=== PATIENT | female | born 1990 | race Caucasian/White ===

== ENCOUNTER 2023-08-01 10:49 | Emergency (ER) | payer BC, MEDICAID, SELFPAY ==
[2023-08-01] VITALS (7 sets, daily range): BP systolic 97–120; BP diastolic 58–83; PULSE 73–89; RESP 16–19; TEMP 36.7; O2SAT 97–100
--- NOTE | 2023-08-01 11:16 | ECG_ITS ---
Measurements Intervals [place] Rate: 75 P: 14 IL: 156 QRS: -1 QRSD: 85 T: 12 QT: 364 QTc: 408 Interpretive Statements SINUS RHYTHM LOW QRS VOLTAGE IN PRECORDIAL LEADS [QRS DEFLECTION < 1.0 mV IN CHEST LEADS] POOR R-WAVE PROGRESSION NO PREVIOUS ECG AVAILABLE FOR COMPARISON Electronically Signed On 08-01-2023 13:29:46 TAP PULLER by Fuad Paniagua M.D.
--- NOTE | 2023-08-01 12:10 | ED.GENADULT ---
HPI - General Adult General Chief complaint: Arrhythmia/Palpitations Stated complaint: Palpations Time Seen by Provider: 08/01/23 11:42 Source: patient Mode of arrival: ambulatory Limitations: no limitations History of Present Illness HPI narrative: This is a 33-year-old female who presents to the ED with chief complaint of abnormal vital signs. Patient states that she was sitting in her car and felt some palpitations and rapid heart rate. Reports she checked her watching noticed that her heart rate got up to around 130. States it was fluctuating between 70 and 130. Denies any medical problems or cardiac history. She does state that she has had a couple of instances where she became lightheaded standing up. Denies syncope, vomiting, shortness of breath, leg swelling, chest pain, numbness, weakness. Review of Systems Review of Systems: All systems as dictated in HPI Exam Narrative: GENERAL: Well-appearing, well-nourished, and in no acute distress. HEAD: Normocephalic, atraumatic. EYES: PERRLA and EOMI. ENT: Nares clear, no rhinorrhea or epistaxis. Mucous membranes moist. Oropharynx without tonsillar hypertrophy exudate or other lesions. NECK: Supple. No adenopathy or masses. CHEST: No respiratory distress. Clear to auscultation. No wheezes rales or rhonchi HEART: Regular rate and rhythm. No murmur heard. Normal peripheral pulses. ABDOMEN: Soft, nontender, nondistended, normal active bowel sounds. MSK: Normal range of motion. No edema. SKIN: Warm, dry, no rash. NEURO: Alert and oriented x3. No focal deficits. PSYCH: Normal mood and affect. Course Vital Signs Vital signs: Vital Signs Temperature 98.1 F 08/01/23 11:13 Pulse Rate 89 08/01/23 11:13 Respiratory Rate 18 08/01/23 11:13 Blood Pressure 120/70 08/01/23 11:13 Pulse Oximetry 97 08/01/23 11:13 Oxygen Delivery Room Air 08/01/23 11:13 Temperature 98.1 F 08/01/23 11:13 Pulse Rate 78 08/01/23 13:35 Respiratory Rate 16 08/01/23 13:35 Blood Pressure 119/83 08/01/23 13:35 Pulse Oximetry 98 08/01/23 13:35 Oxygen Delivery Room Air 08/01/23 11:13 Medical Decision Making [facility] Narrative Medical decision making narrative: This is a 33-year-old female who presents to the ED for chief complaint of palpitations onset today. Checked her Apple watch and noticed her heart rate got up to 130. Vitals are grossly normal here. Exam is benign. EKG shows sinus rhythm with no dysrhythmias. Blood work is unremarkable. site monitor unremarkable. Patient is currently asymptomatic. We discussed that she may need to follow up PCP get a Holter monitor if she has continued episodes of palpitations. Advised to try to avoid caffeine. Pt will be discharged in stable condition. Return precautions given and supportive measures discussed. Pt is understanding and agreeable with plan for discharge and follow-up with PCP. Vital Signs Vital Signs: Vital Signs Temperature 98.1 F 08/01/23 11:13 Pulse Rate 89 08/01/23 11:13 Respiratory Rate 18 08/01/23 11:13 Blood Pressure 120/70 08/01/23 11:13 Pulse Oximetry 97 08/01/23 11:13 Oxygen Delivery Room Air 08/01/23 11:13 Temperature 98.1 F 08/01/23 11:13 Pulse Rate 78 08/01/23 13:35 Respiratory Rate 16 08/01/23 13:35 Blood Pressure 119/83 08/01/23 13:35 Pulse Oximetry 98 08/01/23 13:35 Oxygen Delivery Room Air 08/01/23 11:13 Lab Data 08/01/23 12:26 08/01/23 12:26 Labs: Lab Results 08/01/23 Range/Units 12:26 WBC 6.4 (4.5-10.0) K/mm3 RBC 4.17 L (4.2-5.4) M/mm3 Hgb 11.0 L (12.0-15.0) g/dL Hct 35.8 L (37.0-47.0) % MCV 85.9 (80-100) fl MCH 26.4 (26-34) pg MCHC 30.7 L (32-36) g/dl RDW 15.5 H (11.5-14.5) % Plt Count 235 (150-375) k/mm3 MPV 11.1 H (7.4-10.4) fl Immature Gran % (Auto) 0.3 (0-0.5) % Neut % (Auto) 77.9 H (45.5-73.1) % Lymph % (Auto) 15.7 L (18.3-44.2) %
--- NOTE | 2023-08-01 12:27 | PC.NURSE ---
pt unable to urinate at this time. provided pt with urine cup and educated pt to use call light with any urge to urinate
[2023-08-01 12:35] LABS: Basophils Percent Auto 0.5 % (0.2-1.2); Eosinophils Percent Auto 0.3 % (0-4.4); Hematocrit 35.8 % (37.0-47.0); Immature Granulocyte Absolute 0.02 K/mm3 (0.00-0.031); Immature Granulocyte Percent A 0.3 % (0-0.5); Lymphocytes Percent Auto 15.7 % (18.3-44.2); Mean Corpuscular HGB Conc 30.7 g/dl (32-36); Mean Corpuscular Hemoglobin 26.4 pg (26-34); Mean Corpuscular Volume 85.9 fl (80-100); Mean Platelet Volume 11.1 fl (7.4-10.4); Monocytes Absolute Auto 0.3 K/mm3 (0.1-0.6); Monocytes Percent Auto 5.3 % (2.6-8.5); Neutrophils Percent Auto 77.9 % (45.5-73.1); Platelet Count Result 235 k/mm3 (150-375); Red Blood Count 4.17 M/mm3 (4.2-5.4); Red Cell Distribution Width 15.5 % (11.5-14.5); White Blood Count 6.4 K/mm3 (4.5-10.0)
[2023-08-01 12:50] LABS: Alanine Aminotransferase 16 U/L (6-35); Albumin Level 4.3 g/dL (3.5-5.1); Alkaline Phosphatase 82 U/L (38-126); Anion Gap 8 mmol/L (8-16); Aspartate Amino Transferase 17 U/L (14-36); Bilirubin,Total 0.5 mg/dL (0.2-1.3); Blood Urea Nitrogen 12 mg/dL (7-17); Calcium 9.2 mg/dL (8.4-10.2); Carbon Dioxide 23 mmol/L (22-30); Chloride 108 mmol/L (98-107); Estimated CRCL calculation 125 ml/min; Estimated Glomerular Filt Rate > 60; Glucose 131 mg/dL (65-110); Potassium 4.1 mmol/L (3.4-5.0); Sodium 139 mmol/L (137-145)
== END 2023-08-01 13:47 | disposition home or self-care (01) ==
PROVIDERS: Emergency Provider Physician Assistant
DX: R00.2 Palpitations (principal); R94.31 Abnormal electrocardiogram [ECG] [EKG]
CPT/HCPCS: 36415; 80053; 85025; 93005; 99283

== ENCOUNTER 2024-04-05 14:03 | Emergency (ER) | payer OTHER, SELFPAY ==
[2024-04-05 14:12] VITALS: BP 142/86; PULSE 100; RESP 16; TEMP 36.6; O2SAT 99
[2024-04-05 14:48] LABS: BEDSIDEPREGUCG Negative (Negative)
[2024-04-05 14:53] LABS: Add Urine Microscopic? YES; Appearance Urine Cloudy (Clear); Bacteria Urine None Seen /hpf; Bilirubin Urine Negative (Negative); Blood Urine 3+ (Negative); Color Urine Yellow (Yellow); Glucose Urine UA Negative (Negative); Ketones Urine Negative (Negative); Leukocyte Esterase Ur 3+ LEU/UL (Negative); Nitrate Urine Negative (Negative); Non Pathogenic Casts 0-2; Protein Urine 1+ mg/dL (Negative); RBC Urine 51-100 /hpf (0-2); Specific Grav Ur 1.007 (1.001-1.035); Squamous Epithelial Cell Urine Occasional /hpf (Few); Urobilinogen Urine 0.2 mg/dL (<2.0); WBC Urine >100 /hpf (0-3)
--- NOTE | 2024-04-05 15:21 | ED.FEMALEGU ---
HPI - Female Genitourinary General Chief complaint: Urogenital-Female Stated complaint: low back pain, I think it might be a kidney infec Time Seen by Provider: 04/05/24 14:07 Source: patient Mode of arrival: ambulatory Limitations: no limitations History of Present Illness HPI Narrative: This is a 34-year-old female who presents to the ED for chief complaint of right flank pain over the past couple of days. Reports that symptoms started with urinary burning and urgency a few days ago but this has since subsided. States that she is starting to have more consistent right flank pain but it is not severe. Denies fevers, chills, nausea, vomiting, diarrhea, hematuria, abdominal pain. Review of Systems Review of Systems: All systems as dictated in HPI Exam Narrative: GENERAL: Well-appearing, well-nourished, and in no acute distress. HEAD: Normocephalic, atraumatic. EYES: PERRLA and EOMI. ENT: Nares clear, no rhinorrhea or epistaxis. Mucous membranes moist. Oropharynx without tonsillar hypertrophy exudate or other lesions. NECK: Supple. No adenopathy or masses. CHEST: No respiratory distress. Clear to auscultation. No wheezes rales or rhonchi HEART: Regular rate and rhythm. No murmur heard. Normal peripheral pulses. ABDOMEN: Soft, nontender, nondistended, normal active bowel sounds. Negative flank tenderness bilaterally. MSK: Normal range of motion. No edema. SKIN: Warm, dry, no rash. NEURO: Alert and oriented x4. No focal deficits. PSYCH: Normal mood and affect. Course Vital Signs Vital signs: Vital Signs Temperature 97.8 F 04/05/24 14:12 Pulse Rate 100 04/05/24 14:12 Respiratory Rate 16 04/05/24 14:12 Blood Pressure 142/86 H 04/05/24 14:12 Pulse Oximetry 99 04/05/24 14:12 Oxygen Delivery Room Air 04/05/24 14:12 Temperature 97.8 F 04/05/24 14:12 Pulse Rate 100 04/05/24 14:12 Respiratory Rate 16 04/05/24 14:12 Blood Pressure 142/86 H 04/05/24 14:12 Pulse Oximetry 99 04/05/24 14:12 Oxygen Delivery Room Air 04/05/24 14:12 MDM - Female Genitourinary MDM Narrative Medical decision making narrative: This is a 34 yo female who presents to the ED for chief complaint of right flank pain and urinary urgency. Vitals are normal. Exam shows patient is resting comfortably and in no acute distress. There is no abdominal tenderness and no flank tenderness bilaterally. Presentation more consistent with simple UTI. No fevers or systemic signs or symptoms today. Low concern for ureterolithiasis. Does not appear in renal colic Urinalysis shows 3+ leuks, 51-100 reds, greater than 100 whites. Rx for cephalexin given. Patient will be discharged in stable condition. Supportive measures discussed and return precautions given. Patient is understanding and agreeable with plan for discharge with PCP follow-up. Differential Diagnosis Differential diagnosis: Likely urinary tract infection and other (ureterolithiasis, STD, appendicitis, cholecystitis) Lab Data Labs: Lab Results 04/05/24 Range/Units 14:45 Urine Color Yellow (Yellow) Urine Appearance Cloudy H (Clear) Urine pH 7.0 (5.0-9.0) Ur Specific [place] 1.007 (1.001-1.035) Urine Protein 1+ H (Negative) mg/dL Urine Glucose (UA) Negative (Negative) mg/dL Urine Ketones Negative (Negative) mg/dL Ur Blood (Man) 3+ H (Negative) Urine Nitrate Negative (Negative) Urine Bilirubin Negative (Negative) Urine Urobilinogen 0.2 (<2.0) mg/dL Leukocyte Esterase Rfl 3+ H (Negative) COY/UL Urine RBC 51-100 H (0-2) /hpf Urine WBC >100 H (0-3) /hpf Ur Squamous Epith Cells Occasional (Few) /hpf Urine Bacteria None seen /hpf Urine Casts 0-2 POC Urine HCG, Qual Negative (Negative) Discharge Plan Discharge Clinical Impression: Urinary tract infection Patient Disposition: Home, Self-Care Condition: Stable Instructions: Antibiotic Form Additional Instructions: Exam today does show evidence of UTI. Please take antibiotics as prescribed. Follow-up with PCP on this issue. Make sure that you stay well hydrated If you have any new or worsening symptoms please return to the ER for further evaluation. Prescriptions: New cephalexin 500 mg capsule 500 mg PO Q8H 7 Days Qty: 21 0RF Follow-up/Referrals: UNKNOWN,DOCTOR [Primary Care Provider] - Time of Disposition: 15:40
== END 2024-04-05 16:01 | disposition home or self-care (01) ==
PROVIDERS: Emergency Provider Physician Assistant
DX: N39.0 Urinary tract infection, site not specified (principal)
CPT/HCPCS: 81001; 81025; 87086; 99283

== ENCOUNTER 2025-01-05 20:35 | Emergency (ER) | payer OTHER, SELFPAY ==
[2025-01-05] VITALS (12 sets, daily range): BP systolic 109–126; BP diastolic 63–98; PULSE 57–79; RESP 12–18; TEMP 36.7; O2SAT 91–100
--- NOTE | ~2025-01-05 | CT_ITS ---
EXAMINATION: CT abdomen pelvis w con DATE: 01/05/2025 22:22 INDICATION: lower abdominal pain TECHNIQUE: Computed tomography (CT) of the abdomen and pelvis was performed with 100 mL Omnipaque-350 intravenous contrast. Automated exposure control and iterative reconstruction technique were employe d. The dose-length product was 1535.77 mGy-cm. COMPARISON: None. FINDINGS: Lower thorax: Mild coronary artery calcification. Liver: Enlarged. Biliary/Gallbladder: Gallbladder is normal. No bile duct dilation. Pancreas: No mass or duct dilation. Spleen: Normal. Adrenals:No mass. Kidneys: No suspicious mass, obstructing stone, or hydronephrosis. Nonobstructing 8 mm left lower luis e calcification. Right renal scarring and atrophy. GI tract: No small or large bowel dilation. Normal appendix. Mesentery/Peritoneum: No ascites, mass, or free air. Retroperitoneum: No mass. Pelvis: Pelvic organs are within normal limits. Soft Tissues: Small uncomplicated fat-containing umbilical and bilateral inguinal hernias. Bones: No acute osseous finding. IMPRESSION: Mild coronary artery calcification. Hepatomegaly. Left nephrolithiasis without evidence of obstructive uropathy. Right renal scarring and atrophy. Small uncomplicated fat-containing umbilical and bilateral inguinal hernias. Otherwise unremarkable abdomen pelvis CT findings. Reviewed, dictated and finalized at location K. IMPRESSION: Mild coronary artery calcification. Hepatomegaly. Left nephrolithiasis without evidence of obstructive uropathy. Right renal scar ring and atrophy. Small uncomplicated fat-containing umbilical and bilateral inguinal hernias. Otherwise unremarkable abdomen pelvis CT findings.
[2025-01-05 20:54] LABS: Hematocrit 35.6 % (37.0-47.0); Hemoglobin 11.1 g/dL (12.0-15.0); Immature Granulocyte Percent A 0.3 % (0-0.5); Lymphocytes Absolute Auto 1.60 K/mm3 (0.9-3.2); Mean Corpuscular HGB Conc 31.2 g/dl (32-36); Mean Corpuscular Hemoglobin 27.6 pg (26-34); Mean Corpuscular Volume 88.6 fl (80-100); Nucleated Red Blood Cells Absolute Auto 0.000 K/mm3 (0.0-0.012); Nucleated Red Blood Cells Perc 0.0 % (0.0-0.2); Platelet Count Result 235 k/mm3 (150-375); Red Blood Count 4.02 M/mm3 (4.2-5.4); White Blood Count 6.0 K/mm3 (4.5-10.0)
[2025-01-05 21:08] LABS: Alanine Aminotransferase 20 U/L (6-35); Albumin Level 4.6 g/dL (3.5-5.1); Alkaline Phosphatase 74 U/L (38-126); Anion Gap 8 mmol/L (4-12); Aspartate Amino Transferase 26 U/L (14-36); Bilirubin,Total 0.9 mg/dL (0.2-1.3); Blood Urea Nitrogen 6 mg/dL (7-17); Calcium 9.2 mg/dL (8.4-10.2); Carbon Dioxide 23 mmol/L (22-30); Chloride 105 mmol/L (98-107); Estimated CRCL calculation 99 ml/min; Estimated Glomerular Filt Rate > 60; Glucose 90 mg/dL (65-110); Lipase 46 U/L (23-300); Potassium 3.7 mmol/L (3.4-5.0); Sodium 136 mmol/L (137-145); Total Protein 8.0 g/dL (6.3-8.2)
[2025-01-05 21:23] LABS: BEDSIDEPREGUCG Negative (Negative)
--- NOTE | 2025-01-05 21:27 | ED_ITS ---
HPI - Abdominal Pain General Chief Complaint: Abdominal Pain Stated Complaint: abd pain History of Present Illness HPI narrative: Patient is a 34-year-old female who presents to the ER with complaints of lower abdominal pain. She reports she had back pain that started Saturday, 6 days ago. Patient reports the pain worsened until Saturday. She reports the pain then moved to her lower abdomen. Patient thought this was related to menstrual cramps but reports it significantly worsened today. She reports she has her menstrual period now. Patient denies any recent fevers, any urinary symptoms, or current back pain. She denies any medical history and reports she does not take any daily medications. Related Data Allergies Allergy/AdvReac Type Severity Reaction Status Date / Time No Known Allergies Allergy Verified 01/05/25 21:28 Review of Systems 2 Review of Systems: All systems reviewed & are unremarkable except as noted in HPI and below Exam 2 Narrative: GENERAL: Well appearing, well-nourished, non-toxic, in no acute distress. HEAD: Normocephalic, atraumatic. NECK: Supple. No adenopathy, no masses. RESPIRATORY: Airway patent, respirations nonlabored. Clear to auscultation bilaterally, no rales, rhonchi, wheezing. CARDIOVASCULAR: Regular rate and rhythm without murmurs, rubs, or gallops. Peripheral pulses 2+ and equal bilaterally. ABDOMINAL: Soft, nontender, nondistended, no hepatosplenomegaly. Normoactive BS. MUSCULOSKELETAL: Moves all extremities. Strength/ROM intact without gross deformities. SKIN: Warm, dry, normal color. No rashes. NEURO: A&O X3. Speech clear. Cranial nerves II-XII intact. No ataxic movements. PSYCHIATRIC: Appropriate mood and affect. Normal interaction. Course Vital Signs Vital signs: Vital Signs Temperature 36.7 C 01/05/25 20:36 Pulse Rate 79 01/05/25 20:36 Respiratory Rate 18 01/05/25 20:36 Blood Pressure 109/92 H 01/05/25 20:36 Pulse Oximetry 100 01/05/25 20:36 Oxygen Delivery Room Air 01/05/25 20:36 Temperature 36.7 C 01/05/25 20:36 Pulse Rate 57 L 01/06/25 00:32 Respiratory Rate 17 01/06/25 00:32 Blood Pressure 124/63 01/05/25 22:29 Pulse Oximetry 98 07/30/25 00:32 Oxygen Delivery Room Air 01/05/25 20:36 MDM - Abdominal Pain MDM Narrative Medical decision making narrative: Patient is a 34-year-old female who presents to the ER with complaints of lower abdominal pain. She reports she had back pain that started Saturday, 6 days ago. Patient reports the pain worsened until Saturday. She reports the pain then moved to her lower abdomen. Patient thought this was related to menstrual cramps but reports it significantly worsened today. She reports she has her menstrual period now. Patient denies any recent fevers, any urinary symptoms, or current back pain. She denies any medical history and reports she does not take any daily medications. Labs Ordered: CBC, CMP, lipase, UA Imaging Ordered: CT abdomen pelvis Medications Ordered: 1 L normal saline IV bolus Results: Patient's CT scan indicates Mild coronary artery calcification. Hepatomegaly. Left nephrolithiasis without evidence of obstructive uropathy. Right renal scarring and atrophy. Small uncomplicated fat-containing umbilical and bilateral inguinal hernias. Otherwise unremarkable abdomen pelvis CT findings. Diagnosis: Urinary tract infection, kidney atrophy Consults: Nephrology (outpatient) Patient Education/Shared MDM: Results of lab work and imaging shared with patient. She will be given her 1st dose of oral antibiotics and pain medication here in the ER. Patient strongly advised to maintain hydration status upon discharge and follow-up with her PCP as soon as possible. She will be discharged home with a prescription for Bactrim and Pyridium. Strict return precautions provided. Patient verbalized understanding and is in agreement with plan. Vital signs stable at time of discharge. All questions answered. Differential Diagnosis Differential diagnosis: Likely abdominal pain, acute appendicitis, calculus of kidney, constipation and small bowel obstruction Lab Data Attestation: I reviewed the patient's lab results. 01/05/25 20:45 01/05/25 20:45 Labs: Lab Results 01/05/25 01/05/25 01/05/25 Range/Units 20:45 21:17 21:21 WBC 6.0 (4.5-10.0) K/mm3 RBC 4.02 L (4.2-5.4) M/mm3 Hgb 11.1 L (12.0-15.0) g/dL Hct 35.6 L (37.0-47.0) % MCV 88.6 (80-100) fl MCH 27.6 (26-34) pg MCHC 31.2 L (32-36) g/dl RDW 15.0 H (11.5-14.5) % Plt Count 235 (150-375) k/mm3 MPV 11.7 H (7.4-10.4) fl Immature Gran % (Auto) 0.3 (0-0.5) % Neut % (Auto) 62.1 (45.5-73.1) % Lymph % (Auto) 26.8 (18.3-44.2) % [place] % (Auto) 9.1 H (2.6-8.5) % Eos % (Auto) 1.0 (0-4.4) % Baso % (Auto) 0.7 (0.2-1.2) % Lymph # (Auto) 1.60 (0.9-3.2) K/mm3 [place] # (Auto) 0.5 (0.1-0.6) K/mm3 Eos # (Auto) 0.1 (0-0.3) K/mm3 Baso # (Auto) 0.0 (0.0-0.1) K/mm3 Abs Immat Gran (auto) 0.02 (0.00-0.031) K/mm3 Absolute Neuts (auto) 3.7 (1.3-6.7) K/mm3 Absolute Nucleated RBC 0.000 (0.0-0.012) K/mm3 Nucleated RBC % 0.0 (0.0-0.2) % Sodium 136 L (137-145) mmol/L Potassium 3.7 (3.4-5.0) mmol/L Chloride 105 (98-107) mmol/L Carbon Dioxide 23 (22-30) mmol/L Anion Gap 8 (4-12) mmol/L BUN 6 L D (7-17) mg/dL Creatinine 0.88 (0.7-1.0) mg/dL Estim Creat Clear Calc 99 ml/min Estimated GFR > 60 (59 - ) Glucose 90 (65-110) mg/dL Calcium 9.2 (8.4-10.2) mg/dL Total Bilirubin 0.9 (0.2-1.3) mg/dL AST 26 (14-36) U/L ALT 20 (6-35) U/L Alkaline Phosphatase 74 (38-126) U/L Total Protein 8.0 (6.3-8.2) g/dL Albumin 4.6 (3.5-5.1) g/dL Lipase 46 (23-300) U/L Urine Color Red H (Yellow) Urine Appearance Turbid H (Clear) Urine pH 6.0 (5.0-9.0) Ur Specific [place] 1.020 (1.001-1.035) Urine Protein 4+ H (Negative) mg/dL Urine Glucose (UA) Negative (Negative) mg/dL Urine Ketones 2+ H (Negative) mg/dL Ur Blood (Man) 3+ H (Negative) Urine Nitrate Negative (Negative) Urine Bilirubin 1+ H (Negative) Urine Urobilinogen 1.0 (<2.0) mg/dL Leukocyte Esterase Rfl 1+ H (Negative) COY/UL Urine RBC >100 H (0-2) /hpf Urine WBC 6-10 H (0-3) /hpf Ur Squamous Epith Cells Occasional (Few) /hpf Urine Bacteria 1+ H (None) /hpf POC Urine HCG, Qual Negative (Negative) Imaging Data Attestation: I personally reviewed and interpreted this imaging study as follows: Radiologist's impression: ITS Impressions Abdomen/Pelvis CT 01/05/25 22:29 IMPRESSION: Mild coronary artery calcification. Hepatomegaly. Left nephrolithiasis without evidence of obstructive uropathy. Right renal scarring and atrophy. Small uncomplicated fat-containing umbilical and bilateral inguinal hernias. Otherwise unremarkable abdomen pelvis CT findings. Discharge Plan Discharge Clinical Impression: Urinary tract infection Patient Disposition: Home Condition: Stable Instructions: Antibiotic Form, Urinary Tract Infection in Women (ED) Additional Instructions: Please return to the ER with any worsening symptoms. Follow-up with primary care provider as soon as possible. You may also follow-up with Nephrology. Take all medications as prescribed, including regularly scheduled medications. Complete your full dose of antibiotics. You may take Pyridium for pain control, along with Tylenol and Ibuprofen. Patient Language: French Prescriptions: New sulfamethoxazole-trimethoprim [Bactrim DS] 800-160 mg tablet 1 tablet PO Q12H 5 Days Qty: 10 0RF phenazopyridine [Pyridium] 200 mg tablet 200 mg PO TID Qty: 6 0RF No Action cephalexin 500 mg capsule 500 mg PO Q8H 7 Days Qty: 21 0RF Follow-up/Referrals: Leonie Johnson MD [Physician] - (nephrology) UNKNOWN,DOCTOR [Primary Care Provider] - Stand Alone Forms: Work/School Release IP Time of Disposition: 01:20
--- OUTSIDE RECORDS SUMMARY | 2025-01-05 21:34 | XMS_ITS | Referral Summary ---
Author Organization [facility] Address [address] [place] [address] Care Team Providers Care Wood Handler Name Role Phone No, Physician Primary Care Provider [phone] Allergies No known active allergies Medications docusate sodium (COLACE) 100 mg capsule Take 100 mg by mouth daily Active ferrous sulfate 325 mg (65 mg of elemental iron) tablet Take 325 mg by mouth daily Active vit-iron fum-folic ac 27 mg iron- 0.8 mg tabletIndication s:Vitamin Deficiency Prevention Take 1 tablet by mouth daily 30 tablet 11 01/14/2019 Active ibuprofen (ADVIL,MOTRIN) 600 mg tabletIndication s:Pain Take 1 tablet (600 mg total) by mouth every 6 (six) hours as needed for pain 30 tablet 2 03/09/2020 Active HYDROcodone-acet aminophen (NORCO) 5-325 mg per tabletIndication s:Pain Take 1 tablet by mouth every 6 (six) hours as needed for pain 30 tablet 11/25/2021 Active ibuprofen (ADVIL,MOTRIN) 600 mg tabletIndication s:Pain Take 1 tablet (600 mg total) by mouth every 6 (six) hours as needed for pain 30 tablet 1 11/25/2021 Active Active Problems Problem Noted Date Diagnosed Date Hx of section 11/14/2021 Overview (11/14/2021): Added automatically from request for surgery [id number] Social History Tobacco Use Types Packs/Day Years Used Date Smoking Tobacco: Never Smokeless Tobacco: Never Alcohol Use Standard Drinks/Week Comments Not Currently 0 (1 standard drink = 0.6 oz pur e alcohol) AUDIT-C Answer Date Recorded Frequency of Alcohol Consumption Never 03/07/2020 Average Number of Drinks Not on file 020 Frequency of Binge Drinking Not on file 02/09 Comments No Sex and Gender Information Value Date Recorded Sex Assigned at Not on file 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 Identity Female 07/20/2020 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 [employer] Sexual Orientation Straight 12/23/2018 12 :30 PM CDT Last Filed Vital Signs Vital Sign Reading Time Taken Comments Blood Pressure 117/66 04/04/2022 11:30 AM CDT Pulse 60 04/04/2022 11:30 AM CDT Temperature 36.7 C (98.1 F) 04/04/2022 8:17 AM CDT Respiratory Rate 18 04/04/2022 8:17 AM CDT Oxygen Saturation 99% 04/04/2022 11:30 AM CDT Inhaled Oxygen Concentration - - Weight 104.3 kg (230 lb) 04/04/2022 8:17 AM CDT Height 165.1 cm (5' 5) 11/24/2021 7:29 AM CDT Body Mass Index 38.27 11/24/2021 7:29 AM CDT Plan of Treatment Not on file Insurance [facility] MEDICAID [facility] Advance Directives For more information, please contact: [phone] * Full Code (Latest Code Status on File) Date Activated Date Inactivated Comments 11/24/2021 10:46 AM 11/27/2021 2:42 AM * Full Code Date Activated Date Inactivated Comments 11/24/2021 6:28 AM 11/24/2021 10:46 AM Full CPR in case of cardiopulmonary arrest * Full Code Date Activated Date Inactivated Comments 03/08/2020 2:24 AM 03/10/2020 9:52 PM * Full Code Date Activated Date Inactivated Comments 03/07/2020 11:36 PM 03/08/2020 2:24 AM Full CPR in case of cardiopulmonary arrest * Full Code Date Activated Date Inactivated Comments 01/12/2019 9:39 AM 01/14/2019 12:50 AM Full CPR in c ase of cardiopulmonary arrest Care Teams Wood Handler Relationship Specialty Start Date End Date No, Physician PCP - General 05/01/18
--- OUTSIDE RECORDS SUMMARY | 2025-01-05 21:34 | XMS_ITS | Clinical Summary ---
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 Female 07/20/2020 3:09 AM NUTRITION SERVICES MANAGER Sexual Orientation Straight 12/23/2018 12 :30 PM CDT Obstetrics History Para Term AB IAB SAB Ectopic Multiple Livin g Live Births 5 5 5 1 6 6 Date Outcome GA Total Labor Labor//3rd Weight Sex Type Anes PTL Rebeca A1 A5 Name Clin 2011 Term M Vag-S pont None N Livin g Complications:None 2012 Term F Vag-S pont None N Livin g Complications:None 2018 Term 40w 6d 0h 53m 0h 35m/0h 13m/0h 05m 3.557 kg (7 lb 13.5 oz) M Vag-S pont None N Livin g 9 9 KINSL OW,ADA Gwen Trevino MD Complications:None Delivery Location:[facility] ([facility]) 2019 Term 37w 3d 0h 04m 0h 04m 2.695 kg (5 lb 15.1 oz) M CS-LV ertic al Spinal N Livin g 8 9 KINSL OW,ON EBOYP Gwen Fisher MD Complications:None Delivery Location:[facility] ([facility] PROCEDURE) 2019 Term 37w 3d 0h 01m 0h 01m 2.73 kg (6 lb 0.3 oz) M CS-LV ertic al Spinal N Livin g 8 9 KINSL OW,TW OBOYP Gwen Fisher MD Complications:None Delivery Location[facility] ([facility]ED[facility]) 2021 Term 38w 1d 0h 02m 0h 02m 3.279 kg (7 lb 3.7 oz) M CS-LT ranv Spinal N Livin g 8 8 KINSL OW,ADA Bill Chor ey [place] , [place] Complications:None Delivery [facility]) Last Filed Vital Signs Vital Sign Reading [...] 11/24/2021 7:29 AM CDT Plan of Treatment Health Maintenance Due Date Last Done Comments Cervical Cancer Screening 1989 Depression Screening 1989 Hepatitis C Screening 1989 DTaP/Tdap/Td Vaccine (1 - Tdap) 2000 Varicella Vaccines (1 of 2 - 13+ 2-dose series) 2002 Hepatitis B Screening 2007 Regular Well Visit/Exam 18-64 2007 HPV Vaccines (1 - 3-dose SCD M series) 2016 Influenza Vaccine (#1) 2025 Pneumococcal vaccine <65 Aged Out No longer eligible based on patient's age to complete this topic Insurance [facility] Advance Directives For more information, please contact: [phone] * Full Code (Latest Code Status on [...] c ase of cardiopulmonary arrest Care Teams Hospital Nurse Relationship Specialty Start Date End Date No, Physician PCP - General 05/01/18
--- OUTSIDE RECORDS SUMMARY | 2025-01-05 21:34 | XMS_ITS | Clinical Summary ---
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 Gender Identity Not on file Sexual Orientation Not on file Plan of Treatment Health Maintenance Due Date Last Done Comments Hepatitis C Virus (HCV) Screening 1989 TdaP Immunization 1989 Human Papillomavirus (HPV) Immunization (1 - 3-dose series) 2004 Hepatitis B Immunization (1 of 3 - 19+ 3-dose series) 2008 Pap Smear 2010 Cervical Cancer Screening (CCS) 2019 HPV/Cotest 2019 SARS-COV-2 Immunization ( - 2023- season) 2024 Influenza Immunization (#1) 2025 Respiratory Syncytial Virus (RSV) Immunization (Adult) (1 - 1-dose 75+ series) 2064 Meningococcal Immunization (ACWY) Aged Out No longer eligible based on patient's age to complete this topic Pneumococcal Immunization Combined Aged Out No longer eligible based on patient's age to complete this topic Rotavirus Immunization Aged Out No lo nger eligible based on patient's age to complete this topic [place] [place] [address] MEDICAID [employer] Care Teams Slate Mixer Relationship Specialty Start Date End Date Provider, None [place] PCP - General 06/23/18
--- OUTSIDE RECORDS SUMMARY | 2025-01-05 21:34 | XMS_ITS | Clinical Summary ---
Author Organization [facility] [employer] Address [address] [place] [address] Care Team Providers Care Insulation Engineman Name Role Phone Unavailable Primary Care Provider Unavailabl e Source Comments [facility] [employer],non-owned Affiliates and Associated Physician Practices is amultiple site organization consisting of ambulatory clinics and hospital sitesin [place], [place], [place] and [place]. This disclosure is being madepursuant to the Care Everywhere program and may not contain all information available regarding this patient. Last updated 18.[facility] [employer] Allergies No known active allergies Medications * Be aware that medications may not be up to date on this document. Alwaysverify current medications with the patient. 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 The father of this child is now . Assessment & Plan (09/03/2018 3:01 PM CDT): [facility] recommendation: Will request access to medical records to confirm specific chromosomal defect Recommend genetic counseling session Resolved Problems Problem Noted Date Diagnosed Date Resolved Date 12 weeks gestation of 05/30/2021 07/18/2021 Dichorionic diamniotic twin 09/29/2019 05/26/2021 Family History Medical History Relation Name Comments Neurofibromatosis Daughter Problem ch romosome 15 and 17 Relation Name Status Comments Daughter Alive Social History Tobacco Use Types Packs/Day Years Used Date Smoking Tobacco: Former Cigarettes Q uit: 2011 Smokeless Tobacco: Never Comments No Sex and Gender Information Value Date Recorded Sex Assigned at Female 08/01/2023 12:38 PM MEMS INTEGRATION ENGINEER Legal Sex Female 8:33 AM MEMS INTEGRATION ENGINEER Gender Identity Female 08/01/2023 12:38 PM MEMS INTEGRATION ENGINEER Sexual Orientation Straight 08/01/2023 12 :38 PM MEMS INTEGRATION ENGINEER Last Filed Vital Signs Vital Sign Reading Time Taken Comments Blood Pressure 112/70 03/04/2020 9:32 AM CDT Pulse 100 03/04/2020 9:32 AM CDT Temperature 36.2 C (97.2 F) 03/04/2020 8:11 AM CDT Respiratory Rate 17 07/20/2019 6:20 PM MEMS INTEGRATION ENGINEER Oxygen Saturation 97% 07/20/2019 6:20 PM MEMS INTEGRATION ENGINEER Inhaled Oxygen Concentration - - Weight 104.3 kg (230 lb) 07/20/2019 6:20 PM MEMS INTEGRATION ENGINEER Height 165.1 cm (5' 5) 07/20/2019 6:20 PM MEMS INTEGRATION ENGINEER Body Mass Index 38.27 07/20/2019 6:20 PM MEMS INTEGRATION ENGINEER Plan of Treatment Health Maintenance Due Date Last Done Comments HIV SCREENING 2004 HEPATITIS C SCREENING 02/27/2007 DTAP/TDAP/TD VACCINES (1 - Tdap) 2008 HEPATITIS B VACCINE (1 of 3 - 19+ 3-dose series) 2008 PAP SMEAR 2010 HPV VACCINE (1 - 3-dose SCDM series) 2016 COVID-19 VACCINE (1 - 2023-2 5 season) 2024 DEPRESSION SCREENING 06/10/2024 INFLUENZA VACCINE (#1) 2025 ZOSTER VACCINE (1 of 2) 2039 HIB VACCINE Aged Out No longer eligi ble based on patient's age to complete this topic MENINGOCOCCAL (Group B) VACC INE SHARED DECISION-MAKING Aged Out No longer eligibl e based on patient's age to complete this topic MENINGOCOCCAL GROUPS A/C/Y/W VACCINE Aged Out No longer eligible b ased on patient's age to complete this topic PNEUMOCOCCAL VACCINE Aged Out No long er eligible based on patient's age to complete this topic Insurance [facility]
[2025-01-05 21:49] LABS: Add Urine Microscopic? YES; Appearance Urine Turbid (Clear); Glucose Urine UA Negative (Negative); Leukocyte Esterase Ur 1+ LEU/UL (Negative); Nitrate Urine Negative (Negative); Specific Grav Ur 1.020 (1.001-1.035)
[2025-01-05] MEDS: SODIUM CHLORIDE 0.9% IV 1,000 ML 999 ML IV CONT (21:54)
[2025-01-06 00:01] VITALS: PULSE 68; RESP 17; O2SAT 100
[2025-01-06 00:32] VITALS: PULSE 57; RESP 17; O2SAT 98
[2025-01-06 00:46] VITALS: PULSE 59; RESP 18; O2SAT 99
[2025-01-06 01:00] VITALS: PULSE 62; RESP 13; O2SAT 100
[2025-01-06 01:02] VITALS: BP 109/74; PULSE 57; RESP 17; O2SAT 100
[2025-01-06] MEDS: HYDROcodone/acetaminophen (*CRX) 5-325 MG TABLET 1 TAB PO (01:26)
[2025-01-06] MEDS: SULFAMETHOXAZOLE/TRIMETHOPRIM 800/160 MG DS TABLET 1 TAB PO (01:26)
== END 2025-01-06 01:31 | disposition home or self-care (01) ==
PROVIDERS: Emergency Provider Registered Nurse
DX: N39.0 Urinary tract infection, site not specified (principal)
CPT/HCPCS: 36415; 74177; 80053; 81001; 81025; 83690; 85025; 87086; 96360; 99284; A9270; J7030; Q9967

== ENCOUNTER 2025-01-08 15:56 | Emergency (ER) | payer OTHER, SELFPAY ==
--- NOTE | ~2025-01-08 | CT_ITS ---
EXAMINATION: CT abdomen pelvis wo con DATE: 01/08/2025 18:56 INDICATION: lbp, hx stones, recent uti TECHNIQUE: Computed tomography (CT) of the abdomen and pelvis was performed without intravenous contr ast. Automated exposure control and iterative reconstruction technique were employed. The dose-length product was 577.75 mGy-cm. COMPARISON: 01/05/2025. FINDINGS: Lower thorax: Unremarkable Liver: Enlarged. Biliary/Gallbladder: Gallbladder is normal. No bile duct dilation. Pancreas: No mass or duct dilation. Spleen: Normal. Adrenals:No mass. Kidneys: Right renal scarring. 8mm mm nonobstructing left lower pole calcification. No suspicious mas s or hydronephrosis. GI tract: No small or large bowel dilation. Normal appendix. Mesentery/Peritoneum: No ascites, mass, or free air. Retroperitoneum: No mass. Pelvis: Empty urinary bladder. Normal uterus and bilateral ovaries.. Soft Tissues: Small uncomplicated fat-containing umbilical and bilateral inguinal hernias. Bones: No acute osseous finding. IMPRESSION: No acute abdominopelvic process detected. Reviewed, dictated and finalized at location K.
--- OUTSIDE RECORDS SUMMARY | 2025-01-08 15:58 | XMS_ITS | Clinical Summary ---
Author Organization [facility] Address [address] [place] [address] Care Team Providers Care Vp Digital Marketing Name Role Phone No, Physician Primary Care Provider [phone] Allergies No known active allergies Medications docusate [...] (11/14/2021): Added automatically from request for surgery [id number] Social History Tobacco Use Types Packs/Day Years [...] on file Legal Sex Female 1:28 PM TECHNICAL PUBLICATIONS WRITER Gender Identity Female 07/20/2020 3:09 AM TECHNICAL PUBLICATIONS WRITER Sexual Orientation Straight 12/23/2018 12 :30 PM [...] 8 8 KINSL OW,ADA Bill Chor ey Addy , MD Complications:None Delivery Location:This Facil ity [...] patient's age to complete this topic Insurance [facility] MEDICAID [facility] Advance Directives For more information, please contact: [phone] * Full Code (Latest Code Status on [...] c ase of cardiopulmonary arrest Care Teams Vp Digital Marketing Relationship Specialty Start Date End Date No, Physician PCP - General 05/01/18
--- OUTSIDE RECORDS SUMMARY | 2025-01-08 15:58 | XMS_ITS | Referral Summary ---
Author Organization [facility] Address [address] [place] [address] Care Team Providers Care Quality Assurance Calibrator Name Role Phone No, Physician Primary Care Provider [phone] Allergies No known active allergies Medications docusate [...] (11/14/2021): Added automatically from request for surgery [id number] Social History Tobacco Use Types Packs/Day Years [...] on file Legal Sex Female 1:28 PM CLERGY MEMBER Gender Identity Female 07/20/2020 3:09 AM CLERGY MEMBER Sexual Orientation Straight 12/23/2018 12 :30 PM [...] Plan of Treatment Not on file Insurance [facility] MEDICAID [facility] Advance Directives For more information, please contact: [phone] * Full Code (Latest Code Status on [...] c ase of cardiopulmonary arrest Care Teams Quality Assurance Calibrator Relationship Specialty Start Date End Date No, Physician PCP - General 05/01/18
--- OUTSIDE RECORDS SUMMARY | 2025-01-08 15:58 | XMS_ITS | Clinical Summary ---
Author Organization [facility] Address [address] [place] [address] Phone Care Team Providers Care Cryptographic Clerk Name Role Phone Provider, None Primary Care Provider Unavailabl e Social History Tobacco Use Types Packs/Day Years Used Date Smoking Tobacco: Never Assessed Comments Unknown Sex and Gender Information Value Date Recorded Sex Assigned at Not on file Legal Sex Female 9:22 AM BLOCK CUTTER Gender Identity Not on file Sexual Orientation [...] age to complete this topic [place] [address] MEDICAID [facility] [employer] Care Teams Cryptographic Clerk Relationship Specialty Start Date End Date Provider, None [place] PCP - General 06/23/18
--- OUTSIDE RECORDS SUMMARY | 2025-01-08 15:58 | XMS_ITS | Clinical Summary ---
Author Organization [facility] Address [address] [place] [address] Care Team Providers Care [place] Sheriff Name Role Phone Unavailable Primary Care Provider Unavailabl e Source Comments [facility],non-owned Affiliates and Associated Physician Practices is amultiple site organization consisting of ambulatory clinics and hospital sitesin [place], [place], [place] and [place]. This disclosure is being madepursuant to the Care Everywhere program and may not contain all information available regarding this patient. Last updated 18.[facility] Allergies No known active allergies Medications * [...] Assessment & Plan (09/03/2018 3:01 PM CDT): [facility] recommendation: Will request access to medical records [...] Sex Assigned at Female 08/01/2023 12:38 PM ENTRY ENGINEER Legal Sex Female 8:33 AM ENTRY ENGINEER Gender Identity Female 08/01/2023 12:38 PM ENTRY ENGINEER Sexual Orientation Straight 08/01/2023 12 :38 PM ENTRY ENGINEER Last Filed Vital Signs Vital Sign Reading Time Taken Comments Blood Pressure 112/70 03/04/2020 9:32 AM CDT Pulse 100 03/04/2020 9:32 AM CDT Temperature 36.2 C (97.2 F) 03/04/2020 8:11 AM CDT Respiratory Rate 17 07/20/2019 6:20 PM ENTRY ENGINEER Oxygen Saturation 97% 07/20/2019 6:20 PM ENTRY ENGINEER Inhaled Oxygen Concentration - - Weight 104.3 kg (230 lb) 07/20/2019 6:20 PM ENTRY ENGINEER Height 165.1 cm (5' 5) 07/20/2019 6:20 PM ENTRY ENGINEER Body Mass Index 38.27 07/20/2019 6:20 PM ENTRY ENGINEER Plan of Treatment Health Maintenance Due [...] patient's age to complete this topic Insurance [facility]
[2025-01-08 16:07] VITALS: BP 132/77; PULSE 75; RESP 18; TEMP 36.6; O2SAT 98
--- NOTE | 2025-01-08 16:17 | ED_ITS ---
HPI - Female Genitourinary General Chief complaint: Urogenital-Female <Zhanna Larry SUCCESSFACTORS CONSULTANT - Last Filed: 01/08/25 16:19> Stated complaint: UTI, kidney stones-recently seen <Zhanna Laryr APRN - Last Filed: 01/08/25 16:19> Time Seen by Provider: 01/08/25 16:15 <Zhanna Larry APRN - Last Filed: 01/08/25 16:19> Focused HPI: Patient is a 34-year-old female who presents to the ER with complaints of ongoing back pain. She was seen in the ER 3 days ago for similar symptoms. Patient was diagnosed with the UTI at that time. She reports she has been taking her antibiotics as prescribed. Patient endorses ongoing significant left flank pain. She also endorses continued increased frequency of urination although she is ?drinking a lot of water. Patient denies any nausea, recent fevers, or abdominal pain. She denies any other medical history besides seasonal allergies. GENERAL: Well-appearing, well-nourished, and in no acute distress. HEAD: Normocephalic, atraumatic. CHEST: Clear to auscultation. ?No respiratory distress. HEART: Regular rate and rhythm.? NEURO: ?Alert and oriented x3. Patient screened in triage and initial orders placed.? ?Additional care and disposition to be based upon?diagnostic testing and treatment. <Zhanna Larry, SUCCESSFACTORS CONSULTANT - Last Filed: 01/08/25 16:19> Focused HPI: Patient is a 34-year-old female who presents to the ER with complaints of ongoing back pain. She was seen in the ER 3 days ago for similar symptoms. Patient was diagnosed with the UTI at that time. She reports she has been taking her antibiotics as prescribed. Patient endorses ongoing significant left flank pain. She also endorses continued increased frequency of urination although she is ?drinking a lot of water. Patient denies any nausea, recent fevers, or abdominal pain. She denies any other medical history besides seasonal allergies. GENERAL: Well-appearing, well-nourished, and in no acute distress. HEAD: Normocephalic, atraumatic. CHEST: Clear to auscultation. ?No respiratory distress. HEART: Regular rate and rhythm.? NEURO: ?Alert and oriented x3. Patient screened in triage and initial orders placed.? ?Additional care and disposition to be based upon?diagnostic testing and treatment. <Amber Martínez PA-C - Last Filed: 01/09/25 01:45> Source: patient <KANDICE Fierro Last Filed: 01/09/25 01:45> Mode of arrival: ambulatory <KANDICE Fierro Last Filed: 01/09/25 01:45> Limitations: no limitations <Amber Martínez PA-C - Last Filed: 01/09/25 01:45> History of Present Illness HPI Narrative: Agree with above HPI. Patient also reports having pain throughout her left arm. Denies any injury. Denies chest pain. Denies shortness of breath. Denies abdominal pain. Denies numbness, saddle anesthesia. Also reports a rash to her left hand. Has not taken anything for pain today. CT scan of abdomen/pelvis obtained at recent ED visit did show left nephrolithiasis. No ureterolithiasis. <Amber Martínez PA-C - Last Filed: 01/09/25 01:45> Related Data Allergies/Adverse reactions: Allergies Allergy/AdvReac Type Severity Reaction Status Date / Time No Known Allergies Allergy Verified 01/08/25 15:57 <Zhanna Larry APRN - Last Filed: 01/08/25 16:19> Review of Systems 2 Review of Systems: All systems reviewed & are unremarkable except as noted in HPI. <Amber Martínez PA-C - Last Filed: 01/09/25 01:45> All systems reviewed & are unremarkable except as noted in HPI and below < KANDICE Fierro Last Filed: 01/09/25 01:45> Exam 2 Narrative: GENERAL: Well appearing, morbidly obese with BMI of 42.4, non-toxic, in no acute distress. HEAD: Normocephalic, atraumatic. RESPIRATORY: Airway patent, respirations nonlabored. Clear to auscultation bilaterally, no rales, rhonchi, wheezing. CARDIOVASCULAR: Regular rate and rhythm without murmurs, rubs, or gallops. ABDOMINAL: Soft, no tenderness, nondistended. Normoactive BS. MUSCULOSKELETAL: Moves all extremities. No gross deformities. No significant midline lumbar spinal tenderness. Minimal tenderness in forest paraspinal lumbar musculature. Sensation intact. No palpable bony deformities. Pain reported with range of motion of left shoulder. SKIN: Warm, dry, normal color. No appreciable rash to bilateral palmar hand regions. NEURO: A&O X3. Speech clear. Cranial nerves II-XII grossly intact. Steady gait. No ataxic movements. PSYCHIATRIC: Appropriate mood and affect. Normal interaction. <Amber Martínez PA-C - Last Filed: 01/09/25 01:45> Course Vital Signs Vital signs: Vital Signs Temperature 97.9 F 01/08/25 16:07 Pulse Rate 75 01/08/25 16:07 Respiratory Rate 18 01/08/25 16:07 Blood Pressure 132/77 01/08/25 16:07 Pulse Oximetry 98 01/08/25 16:07 Oxygen Delivery Room Air 01/08/25 16:07 Temperature 97.9 F 01/08/25 16:07 Pulse Rate 75 01/08/25 16:07 Respiratory Rate 18 01/08/25 16:07 Blood Pressure 132/77 01/08/25 16:07 Pulse Oximetry 98 01/08/25 16:07 Oxygen Delivery Room Air 01/08/25 16:07 <Zhanna Larry, SUCCESSFACTORS CONSULTANT - Last Filed: 01/08/25 16:19> Vital Signs Temperature 97.9 F 01/08/25 16:07 Pulse Rate 75 01/08/25 16:07 Respiratory Rate 18 01/08/25 16:07 Blood Pressure 132/77 01/08/25 16:07 Pulse Oximetry 98 01/08/25 16:07 Oxygen Delivery Room Air 01/08/25 16:07 Temperature 97.9 F 01/08/25 16:07 Pulse Rate 75 01/08/25 16:07 Respiratory Rate 18 01/08/25 16:07 Blood Pressure 132/77 01/08/25 16:07 Pulse Oximetry 98 01/08/25 16:07 Oxygen Delivery Room Air 01/08/25 16:07 <Amber Martínez PA-C - Last Filed: 01/09/25 01:45> MDM - Female Genitourinary [facility] Narrative Medical decision making narrative: Patient reports having pain throughout her lower back for the past several days. Also reports left arm pain, rash to hand. Recently diagnosed with urinary tract infection. Started on Bactrim which she is still taking. Vital signs are stable upon arrival. Patient is in no acute distress. Laboratory studies without leukocytosis. Stable mild anemia. CMP is unremarkable. UA with still positive nitrates, but no wbc's seen. Advised patient to continue taking antibiotics and finish the course as prescribed. EKG is without ischemic changes. Troponin undetectable. Very low suspicion for ACS. CT scan of abdomen/pelvis was obtained today and without changes from previous. No ureterolithiasis. No other concerning features. No abnormalities noted of lumbar spine. Suspicious for musculoskeletal etiology/lumbar strain. Patient is feeling improved with supportive therapy in the ED. She did not take anything for pain prior to arrival. Feel patient is safe for discharge home at this time. Advised to continue Tylenol/ibuprofen as needed for pain. Advised to continue antibiotics. Recommended follow-up with PCP. Given return precautions. She agrees with plan. She feels ready to go home. Discharged in stable condition. <Amber Martínez PA-C - Last Filed: 01/09/25 01:45> Medical Records Attestation: I reviewed the patient's medical records. <Amber Martínez PA-C - Last Filed: 01/09/25 01:45> Lab Data Attestation: I reviewed the patient's lab results. <Amber Martínez PA-C - Last Filed: 01/09/25 01:45> Result diagrams: 01/08/25 18:26 01/08/25 18:26 <Zhanna Larry APRN - Last Filed: 01/08/25 16:19> Labs: Lab Results 01/08/25 01/08/25 Range/Units 18:12 18:26 WBC 5.0 (4.5-10.0) K/mm3 RBC 3.87 L (4.2-5.4) M/mm3 Hgb 10.8 L (12.0-15.0) g/dL Hct 34.7 L (37.0-47.0) % MCV 89.7 (80-100) fl MCH 27.9 (26-34) pg MCHC 31.1 L (32-36) g/dl RDW 15.3 H (11.5-14.5) % Plt Count 238 (150-375) k/mm3 MPV 11.8 H (7.4-10.4) fl Immature Gran % (Auto) 0.0 (0-0.5) % Neut % (Auto) 63.7 (45.5-73.1) % Lymph % (Auto) 27.2 (18.3-44.2) % [place] % (Auto) 7.5 (2.6-8.5) % Eos % (Auto) 0.8 (0-4.4) % Baso % (Auto) 0.8 (0.2-1.2) % Lymph # (Auto) 1.37 (0.9-3.2) K/mm3 [place] # (Auto) 0.4 (0.1-0.6) K/mm3 Eos # (Auto) 0.0 (0-0.3) K/mm3 Baso # (Auto) 0.0 (0.0-0.1) K/mm3 Abs Immat Gran (auto) 0.00 (0.00-0.031) K/mm3 Absolute Neuts (auto) 3.2 (1.3-6.7) K/mm3 Absolute Nucleated RBC 0.000 (0.0-0.012) K/mm3 Nucleated RBC % 0.0 (0.0-0.2) % Sodium 137 (137-145) mmol/L Potassium 4.1 (3.4-5.0) mmol/L Chloride 106 (98-107) mmol/L Carbon Dioxide 25 (22-30) mmol/L Anion Gap 6 (4-12) mmol/L BUN 7 (7-17) mg/dL Creatinine 1.03 H (0.7-1.0) mg/dL Estim Creat Clear Calc 86 ml/min Estimated GFR > 60 (59 - ) Glucose 101 (65-110) mg/dL Calcium 9.5 (8.4-10.2) mg/dL Total Bilirubin 0.7 (0.2-1.3) mg/dL AST 25 (14-36) U/L ALT 20 (6-35) U/L Alkaline Phosphatase 67 (38-126) U/L Troponin I < 0.012 (0.000-0.034) ng/mL Total Protein 7.7 (6.3-8.2) g/dL Albumin 4.4 (3.5-5.1) g/dL Urine Color Dark yellow (Yellow) Urine Appearance Clear (Clear) Urine pH 7.0 (5.0-9.0) Ur Specific [place] 1.002 (1.001-1.035) Urine Protein Negative (Negative) mg/dL Urine Glucose (UA) Negative (Negative) mg/dL Urine Ketones Negative (Negative) mg/dL Ur Blood (Man) 3+ H (Negative) Urine Nitrate Positive H (Negative) Urine Bilirubin Negative (Negative) Urine Urobilinogen 1.0 (<2.0) mg/dL Add Ur Microanalysis Reviewed Leukocyte Esterase Rfl Trace H (Negative) COY/UL Urine RBC 3-5 H (0-2) /hpf Urine WBC 0-5 (0-3) /hpf Ur Squamous Epith Cells Occasional (Few) /hpf Urine Bacteria None seen /hpf Urine Casts 0-2 <Zhanna Larry, SUCCESSFACTORS CONSULTANT - Last Filed: 01/08/25 16:19> Lab Results 01/08/25 01/08/25 Range/Units 18:12 18:26 WBC 5.0 (4.5-10.0) K/mm3 RBC 3.87 L (4.2-5.4) M/mm3 Hgb 10.8 L (12.0-15.0) g/dL Hct 34.7 L (37.0-47.0) % MCV 89.7 (80-100) fl MCH 27.9 (26-34) pg MCHC 31.1 L (32-36) g/dl RDW 15.3 H (11.5-14.5) % Plt Count 238 (150-375) k/mm3 MPV 11.8 H (7.4-10.4) fl Immature Gran % (Auto) 0.0 (0-0.5) % Neut % (Auto) 63.7 (45.5-73.1) % Lymph % (Auto) 27.2 (18.3-44.2) % [place] % (Auto) 7.5 (2.6-8.5) % Eos % (Auto) 0.8 (0-4.4) % Baso % (Auto) 0.8 (0.2-1.2) % Lymph # (Auto) 1.37 (0.9-3.2) K/mm3 [place] # (Auto) 0.4 (0.1-0.6) K/mm3 Eos # (Auto) 0.0 (0-0.3) K/mm3 Baso # (Auto) 0.0 (0.0-0.1) K/mm3 Abs Immat Gran (auto) 0.00 (0.00-0.031) K/mm3 Absolute Neuts (auto) 3.2 (1.3-6.7) K/mm3 Absolute Nucleated RBC 0.000 (0.0-0.012) K/mm3 Nucleated RBC % 0.0 (0.0-0.2) % Sodium 137 (137-145) mmol/L Potassium 4.1 (3.4-5.0) mmol/L Chloride 106 (98-107) mmol/L Carbon Dioxide 25 (22-30) mmol/L Anion Gap 6 (4-12) mmol/L BUN 7 (7-17) mg/dL Creatinine 1.03 H (0.7-1.0) mg/dL Estim Creat Clear Calc 86 ml/min Estimated GFR > 60 (59 - ) Glucose 101 (65-110) mg/dL Calcium 9.5 (8.4-10.2) mg/dL Total Bilirubin 0.7 (0.2-1.3) mg/dL AST 25 (14-36) U/L ALT 20 (6-35) U/L Alkaline Phosphatase 67 (38-126) U/L Troponin I < 0.012 (0.000-0.034) ng/mL Total Protein 7.7 (6.3-8.2) g/dL Albumin 4.4 (3.5-5.1) g/dL Urine Color Dark yellow (Yellow) Urine Appearance Clear (Clear) Urine pH 7.0 (5.0-9.0) Ur Specific [place] 1.002 (1.001-1.035) Urine Protein Negative (Negative) mg/dL Urine Glucose (UA) Negative (Negative) mg/dL Urine Ketones Negative (Negative) mg/dL Ur Blood (Man) 3+ H (Negative) Urine Nitrate Positive H (Negative) Urine Bilirubin Negative (Negative) Urine Urobilinogen 1.0 (<2.0) mg/dL Add Ur Microanalysis Reviewed Leukocyte Esterase Rfl Trace H (Negative) COY/UL Urine RBC 3-5 H (0-2) /hpf Urine WBC 0-5 (0-3) /hpf Ur Squamous Epith Cells Occasional (Few) /hpf Urine Bacteria None seen /hpf Urine Casts 0-2 <Amber Martínez PA-C - Last Filed: 01/09/25 01:45> Imaging Data Attestation: I personally reviewed and interpreted this imaging study as follows: < Amber Martínez PA-C - Last Filed: 01/09/25 01:45> Radiologist's impression: ITS Impressions Abdomen/Pelvis CT 01/08/25 19:16 IMPRESSION: No acute abdominopelvic process detected. <Amber Martínez PA-C - Last Filed: 01/09/25 01:45> ECG Data EKG #1: Attestation: I personally reviewed and interpreted this ECG as follows: <Amber Martínez PA-C - Last Filed: 01/09/25 01:45> ECG completion date: 01/08/25 <Amber Martínez PA-C - Last Filed: 01/09/25 01:45> ECG completion time: 18:45 <KANDICE Fierro Last Filed: 01/09/25 01:45> EKG Interpretation: bradycardia (54), sinus rhythm and no ST changes <KANDICE Fierro Last Filed: 01/09/25 01:45> Discharge Plan Discharge Clinical Impression: Strain of lumbar region Qualifiers: Encounter type: initial encounter Qualified Code(s): S39.012A - Strain of muscle, fascia and tendon of lower back, initial encounter Strain of left upper arm Qualifiers: Encounter type: initial encounter Qualified Code(s): S46.912A - Strain of unspecified muscle, fascia and tendon at shoulder and upper arm level, left arm, initial encounter <Zhanna Larry APRN - Last Filed: 01/08/25 16:19> Patient Disposition: Home <Zhanna Larry APRN - Last Filed: 01/08/25 16:19> Condition: Stable <Zhanna Larry APRN - Last Filed: 01/08/25 16:19> Instructions: Antibiotic Form, Urinary Tract Infection in Women (ED), Acute Low Back Pain (ED) <Zhanna Larry APRN - Last Filed: 01/08/25 16:19> Additional Instructions: Continue Tylenol/ibuprofen as needed for pain. Finish your antibiotics as prescribed for urinary tract infection. Avoid heavy lifting or strenuous activity until symptoms improve. Follow-up with your primary care doctor for further evaluation. Return to the ED for worsening or severe pain, unable to keep down food or drink, persistent fevers, difficulty urinating, blood in your urine, or any other symptoms of concern. <Zhanna Larry APRN - Last Filed: 01/08/25 16:19> Patient Language: Turkmen <Zhanna Larry APRN - Last Filed: 01/08/25 16:19> Prescriptions: No Action sulfamethoxazole-trimethoprim [Bactrim DS] 800-160 mg tablet 1 tablet PO Q12H 5 Days Qty: 10 0RF phenazopyridine [Pyridium] 200 mg tablet 200 mg PO TID Qty: 6 0RF cephalexin 500 mg capsule 500 mg PO Q8H 7 Days Qty: 21 0RF <Zhanna Larry APRN - Last Filed: 01/08/25 16:19> Follow-up/Referrals: UNKNOWN,DOCTOR [Primary Care Provider] - <Zhanna Larry APRN - Last Filed: 01/08/25 16:19> Time of Disposition: 20:23 <Zhanna Larry APRN - Last Filed: 01/08/25 16:19> 20:23 <Amber Martínez PA-C - Last Filed: 01/09/25 01:45>
--- OUTSIDE RECORDS SUMMARY | 2025-01-08 17:55 | XMS_ITS | Clinical Summary ---
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
--- OUTSIDE RECORDS SUMMARY | 2025-01-08 17:55 | XMS_ITS | Clinical Summary ---
Author Organization [facility] Address [address] [place] [address] Care Team Providers Care Test Equipment Mechanic Name Role Phone Unavailable Primary Care Provider Unavailabl e Source Comments [facility],non-owned Affiliates and Associated Physician Practices is amultiple site organization consisting of ambulatory clinics and hospital sitesin [place], [place], [place] and [place]. This disclosure is being madepursuant to the Care Everywhere program and may not contain all information available regarding this patient. Last updated 18.[facility] Allergies No known active allergies Medications * [...] Assessment & Plan (09/03/2018 3:01 PM CDT): [facility] recommendation: Will request access to medical [...] Sex Assigned at Female 08/01/2023 12:38 PM MANAGER HOME IMPROVEMENT Legal Sex Female 8:33 AM MANAGER HOME IMPROVEMENT Gender Identity Female 08/01/2023 12:38 PM MANAGER HOME IMPROVEMENT Sexual Orientation Straight 08/01/2023 12 :38 PM MANAGER HOME IMPROVEMENT Last Filed Vital Signs Vital Sign Reading Time Taken Comments Blood Pressure 112/70 03/04/2020 9:32 AM CDT Pulse 100 03/04/2020 9:32 AM CDT Temperature 36.2 C (97.2 F) 03/04/2020 8:11 AM CDT Respiratory Rate 17 07/20/2019 6:20 PM MANAGER HOME IMPROVEMENT Oxygen Saturation 97% 07/20/2019 6:20 PM MANAGER HOME IMPROVEMENT Inhaled Oxygen Concentration - - Weight 104.3 kg (230 lb) 07/20/2019 6:20 PM MANAGER HOME IMPROVEMENT Height 165.1 cm (5' 5) 07/20/2019 6:20 PM MANAGER HOME IMPROVEMENT Body Mass Index 38.27 07/20/2019 6:20 PM MANAGER HOME IMPROVEMENT Plan of Treatment Health Maintenance Due Date [...] patient's age to complete this topic Insurance [facility]
--- OUTSIDE RECORDS SUMMARY | 2025-01-08 17:55 | XMS_ITS | Clinical Summary ---
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
--- OUTSIDE RECORDS SUMMARY | 2025-01-08 17:55 | XMS_ITS | Referral Summary ---
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 Advance Directives For more information, please contact: [phone] * Full Code (Latest Code Status on [...] c ase of cardiopulmonary arrest Care Teams Tumbler Operator Relationship Specialty Start Date End Date No, Physician PCP - General 05/01/18
--- NOTE | 2025-01-08 18:26 | ECG_ITS ---
Test Date: 2025-01-08 18:45:18 Measurements Intervals [place] Rate: 54 P: 20 [place]: 150 QRS: 25 QRSD: 93 T: 38 QT: 408 QTc: 387 Interpretive Statements SINUS BRADYCARDIA BASELINE ARTIFACT- I, II, III, AVR, AVL BORDERLINE ECG No previous ECG available for comparison Electronically Signed On 01-08-2025 19:17:26 CDT by Lino Bloom D.O.
[2025-01-08 18:31] LABS: Add Urine Microscopic? YES; Appearance Urine Clear (Clear); Glucose Urine UA Negative (Negative); Leukocyte Esterase Ur Trace LEU/UL (Negative); Need Manual Microscopic Reviewed; Nitrate Urine Positive (Negative); Non Pathogenic Casts 0-2; Specific Grav Ur 1.002 (1.001-1.035)
[2025-01-08 18:41] LABS: Hematocrit 34.7 % (37.0-47.0); Hemoglobin 10.8 g/dL (12.0-15.0); Immature Granulocyte Percent A 0.0 % (0-0.5); Lymphocytes Absolute Auto 1.37 K/mm3 (0.9-3.2); Mean Corpuscular HGB Conc 31.1 g/dl (32-36); Mean Corpuscular Hemoglobin 27.9 pg (26-34); Mean Corpuscular Volume 89.7 fl (80-100); Nucleated Red Blood Cells Absolute Auto 0.000 K/mm3 (0.0-0.012); Nucleated Red Blood Cells Perc 0.0 % (0.0-0.2); Platelet Count Result 238 k/mm3 (150-375); Red Blood Count 3.87 M/mm3 (4.2-5.4); White Blood Count 5.0 K/mm3 (4.5-10.0)
[2025-01-08 18:52] LABS: Alanine Aminotransferase 20 U/L (6-35); Albumin Level 4.4 g/dL (3.5-5.1); Alkaline Phosphatase 67 U/L (38-126); Anion Gap 6 mmol/L (4-12); Aspartate Amino Transferase 25 U/L (14-36); Bilirubin,Total 0.7 mg/dL (0.2-1.3); Blood Urea Nitrogen 7 mg/dL (7-17); Calcium 9.5 mg/dL (8.4-10.2); Carbon Dioxide 25 mmol/L (22-30); Chloride 106 mmol/L (98-107); Estimated CRCL calculation 86 ml/min; Estimated Glomerular Filt Rate > 60; Glucose 101 mg/dL (65-110); Potassium 4.1 mmol/L (3.4-5.0); Sodium 137 mmol/L (137-145); Total Protein 7.7 g/dL (6.3-8.2)
[2025-01-08] MEDS: ACETAMINOPHEN 500 MG TABLET 1000 MG PO (19:27)
[2025-01-08] MEDS: KETOROLAC (*BKC) 60 MG/2 ML VIAL IM (19:27)
[2025-01-08 19:39] LABS: Troponin I < 0.012 ng/mL (0.000-0.034)
== END 2025-01-08 20:38 | disposition home or self-care (01) ==
PROVIDERS: Registered Nurse; Emergency Provider Physician Assistant
DX: S39.012A Strain of muscle, fascia and tendon of lower back, initial encounter (principal); S46.912A Strain of unspecified muscle, fascia and tendon at shoulder and upper arm level, left arm, initial encounter; N39.0 Urinary tract infection, site not specified; R00.1 Bradycardia, unspecified; X58.XXXA Exposure to other specified factors, initial encounter
CPT/HCPCS: 36415; 74176; 80053; 81001; 84484; 85025; 87086; 93005; 96372; 99284; A9270; J1885

== ENCOUNTER 2025-04-13 10:41 | Outpatient (CLI) | payer OTHER, SELFPAY ==
--- NOTE | ~2025-04-13 | US_ITS ---
Examination: Ultrasound of the retroperitoneum including kidneys and bladder. Clinical History: N28.89 - Other specified disorders of kidney and ureter . Comparison: None available. Findings: Right kidney: 10 cm. Normal echogenicity. No collecting system dilatation. No shadowing calculi. Left kidney: 10 cm. Normal echogenicity. No collecting system dilatation. No shadowing calculi. Urinary bladder: No wall thickening or focal abnormality. Bilateral ureteral jets seen. IMPRESSION: 1. No acute findings. Reviewed, dictated and finalized at location R. [employer] IMPRESSION: 1. No acute findings.
[2025-04-13 12:01] LABS: Need Manual Microscopic Reviewed; Non Pathogenic Casts 0-2
[2025-04-13 12:03] LABS: Add Urine Microscopic? YES; Appearance Urine Cloudy (Clear); Glucose Urine UA Negative (Negative); Leukocyte Esterase Ur 3+ LEU/UL (Negative); Nitrate Urine Negative (Negative); Specific Grav Ur 1.004 (1.001-1.035)
[2025-04-13 12:04] LABS: Total Protein Urine Random 54 mg/dL
[2025-04-13 12:05] LABS: Albumin Level 4.3 g/dL (3.5-5.1); Anion Gap 9 mmol/L (4-12); Blood Urea Nitrogen 9 mg/dL (7-17); Calcium 8.8 mg/dL (8.4-10.2); Carbon Dioxide 24 mmol/L (22-30); Chloride 106 mmol/L (98-107); Estimated Glomerular Filt Rate > 60; Glucose 106 mg/dL (65-110); Potassium 4.4 mmol/L (3.4-5.0); Sodium 139 mmol/L (137-145)
[2025-04-13 12:16] LABS: Ur Ttl Prot Creatinine Ratio 2.51 mg/mg (0-0.20)
== END 2025-04-13 10:42 | disposition home or self-care (01) ==
LOC: ANHIMG 10:43
PROVIDERS: Visit Provider Internal Medicine Nephrology
DX: N28.89 Other specified disorders of kidney and ureter (principal); R30.0 Dysuria
CPT/HCPCS: 36415; 76770; 80069; 81001; 82570; 84156